=== PATIENT | male | born 1970 ===

== ENCOUNTER 2025-02-16 09:35 | Emergency (ER) | payer BC ==
[~2025-02-16] VITALS: Ht 182.9 cm; Wt 117.9 kg
[~2025-02-16 09:35] MED LIST: IBUHYD PO; INSUASPI; INSULANI
[2025-02-16] MEDS ORDERED: Cephalexin Monohydrate 500 MG Cap PO ONE (10:05)
[2025-02-16] MEDS ORDERED: CEPH500 PO (10:06)
[2025-02-16 10:27] VITALS: BP 170/81
== END 2025-02-16 10:27 | disposition home or self-care (01) ==
LOC: ER 09:35
DX: L03.115 Cellulitis of right lower limb (principal); E10.9 Type 1 diabetes mellitus without complications; Z79.4 Long term (current) use of insulin
CPT/HCPCS: 99283; A9270

== ENCOUNTER 2025-02-18 18:06 | Inpatient (IN) | payer BC ==
[~2025-02-18] VITALS: Ht 182.9 cm; Wt 118.7 kg
[~2025-02-18 18:06] MED LIST changes: +CEPH500 PO
[2025-02-18 22:43] LABS: BASOPHILS ABSOLUTE AUTO 0.07 K/mm3 (0.00-0.23); BASOPHILS PERCENT AUTO 1 % (0-2); EOSINOPHILS ABSOLUTE AUTO 0.09 K/mm3 (0.00-0.68); EOSINOPHILS PERCENT AUTO 1 % (0-6); Hematocrit 50.3 % (37.0-53.0); Hemoglobin 16.3 g/dL (13.5-17.5); IMMATURE GRAN ABSOLUTE AUTO 0.17 K/mm3 (0.00-0.10); IMMATURE GRAN PERCENT AUTO 1 % (0-1); LYMPHOCYTES ABSOLUTE AUTO 1.51 K/mm3 (0.84-5.20); LYMPHOCYTES PERCENT AUTO 11 % (21-46); MONOCYTES ABSOLUTE AUTO 1.23 K/mm3 (0.16-1.47); MONOCYTES PERCENT AUTO 9 % (4-13); Mean Corpuscular HGB 27.7 pg (26.0-34.0); Mean Corpuscular HGB Conc 32.4 g/dL (31.5-36.5); Mean Corpuscular Volume 86 fL (80-100); NEUTROPHILS ABSOLUTE AUTO 10.74 K/mm3 (1.96-9.15); NEUTROPHILS PERCENT AUTO 78 % (41-73); Platelet Count 282 K/mm3 (150-400); RDW Standard Deviation 47.6 fL (35.1-46.3); Red Blood Cell Count 5.88 M/mm3 (4.30-5.90); White Blood Cell Count 13.81 K/mm3 (4.00-11.30)
[2025-02-18] MEDS ORDERED: Cefepime HCl 2,000 MG in NS 100 ML IV ONE (23:10)
[2025-02-18 23:11] LABS: Albumin, Blood 2.8 g/dL (3.4-5.0); Albumin/Globulin Ratio 0.5 (0.8-1.8); Bilirubin, Total 0.5 mg/dL (0.1-1.0); Bun/Creatinine Ratio 25.8 (12.0-20.0); Creatinine, Blood 0.78 mg/dL (0.60-1.20); Globulin, Blood 5.4 g/dL (2.2-4.0); Potassium, Blood 3.6 mmol/L (3.5-5.5); Total Protein, Blood 8.2 g/dL (6.4-8.2)
[2025-02-19] MEDS ORDERED: Acetaminophen 325 MG TABLET PO PRN (02:45)
[2025-02-19] MEDS ORDERED: HydrALAZINE HCl 20 MG / ML 1ML Vial IV PRN (02:50)
[2025-02-19] MEDS ORDERED: INSULIN GL100 UNIT/2 SC (03:15)
[2025-02-19 04:45] VITALS: BP 210/89
[2025-02-19] MEDS ORDERED: Vancomycin HCL 2,500 MG in NS 500 ML IV ONE (05:05)
--- NOTE | 2025-02-19 06:10 | NUR ---
PT ADMITTED FROM ED WITH RLE CELLULITIS, ON IVABX, CAN USE CALL SYSTEM, IS TYPE 1 DM, AND HAS CMG WITH CONTINUOUS CBG MONITOR, USES INSULIN AT HOME. PT INDEPENDENT.
[2025-02-19 07:16] LABS: BASOPHILS ABSOLUTE AUTO 0.08 K/mm3 (0.00-0.23); BASOPHILS PERCENT AUTO 1 % (0-2); EOSINOPHILS ABSOLUTE AUTO 0.11 K/mm3 (0.00-0.68); EOSINOPHILS PERCENT AUTO 1 % (0-6); Hematocrit 46.2 % (37.0-53.0); Hemoglobin 15.3 g/dL (13.5-17.5); IMMATURE GRAN ABSOLUTE AUTO 0.14 K/mm3 (0.00-0.10); IMMATURE GRAN PERCENT AUTO 1 % (0-1); LYMPHOCYTES ABSOLUTE AUTO 1.48 K/mm3 (0.84-5.20); LYMPHOCYTES PERCENT AUTO 13 % (21-46); MONOCYTES ABSOLUTE AUTO 1.29 K/mm3 (0.16-1.47); MONOCYTES PERCENT AUTO 11 % (4-13); Mean Corpuscular HGB 28.6 pg (26.0-34.0); Mean Corpuscular HGB Conc 33.1 g/dL (31.5-36.5); Mean Corpuscular Volume 86 fL (80-100); Mean Platelet Volume 11.8 fL (9.1-12.4); NEUTROPHILS ABSOLUTE AUTO 8.46 K/mm3 (1.96-9.15); NEUTROPHILS PERCENT AUTO 73 % (41-73); Platelet Count 245 K/mm3 (150-400); RDW Standard Deviation 47.9 fL (35.1-46.3); Red Blood Cell Count 5.35 M/mm3 (4.30-5.90); White Blood Cell Count 11.56 K/mm3 (4.00-11.30)
[2025-02-19] MEDS ORDERED: Insulin Human Lispro 100 Units/ML 3ML Syringe SC SCH (07:30)
[2025-02-19 07:33] VITALS: BP 184/83
[2025-02-19 07:57] LABS: Albumin, Blood 2.3 g/dL (3.4-5.0); Albumin/Globulin Ratio 0.5 (0.8-1.8); Bilirubin, Total 0.6 mg/dL (0.1-1.0); Bun/Creatinine Ratio 20.3 (12.0-20.0); Calcium, Blood 8.4 mg/dL (8.5-10.1); Creatinine, Blood 0.69 mg/dL (0.60-1.20); Globulin, Blood 4.4 g/dL (2.2-4.0); Potassium, Blood 3.6 mmol/L (3.5-5.5); Total Protein, Blood 6.7 g/dL (6.4-8.2)
[2025-02-19] MEDS ORDERED: Enoxaparin 40 MG/0.4 ML SYR SC SCH (09:00)
--- NOTE | 2025-02-19 13:13 | NUR ---
PT REQUESTING TO MONITOR/MANAGE HIS OWN CBG USING HIS DEXCOM AND ADMINISTER HIS INSULIN INDEPENDENTLY. PT DISCUSSED WITH PROVIDER WHO AGREES PT IS CAPABLE AND CONSISTENT IN MANAGING HIS DM1. PT SIGNED PAPER AGREEING TO NOTIFY RN ON DUTY OF CBG AC/HS AND VERIFY ANY INSULIN PRIOT TO BEING ADMINISTERED FOR PROPER DOCUMENTATION. WHITE LEAD GRINDER NOTIFIED AND IN AGREEANCE.
[2025-02-19] MEDS ORDERED: Lisinopril 10 MG Tab PO SCH (15:00)
[2025-02-19 15:12] VITALS: BP 187/81
[2025-02-19] MEDS ORDERED: Vancomycin HCL 1,500 MG in NS 250 ML IV SCH ×2 (17:00→18:00)
--- NOTE | 2025-02-19 17:27 | NUR ---
SHIFT SUMMARY NO ACUTE CHANGES, A/Ox4, ABLE TO MAKE NEEDS KNOWN AND USE CALL LIGHT APPROPRIATELY. PT DENIES PAIN BESIDES WHEN INITIALLY STANDING TO AMBULATE, DENIES NEED FOR PAIN MANAGEMENT. PER PROIVDER ORDER PT ABLE TO MANAGE DM1 WITH INSULIN INDEPENDENTLY AND USING DEXCOM - PT AGREES TO NOTIFY RN ON DUTY WHEN HE ADMINISTERS INSULIN FOR DOCUMENTATION PURPOSES. MRSA NOSE SWAB COMPLETED, UNABLE TO COLLECT SKIN SWAB DUE TO NO WHEEPING. RLE REMAINS RED AND SWOLLEN, REDNESS WITHIN MARKINGS. CONTINUES ON VANCO ABX. PT CURRENTLY RESTING IN HOSPITAL BED WITH BED IN LOWEST POSITION, CALL LIGHT WITHIN REACH. FAMILY AT BEDSIDE.
[2025-02-19 19:22] VITALS: BP 169/78
[2025-02-19] MEDS ORDERED: Insulin Glargine-Yfgn 100 Unit/mL 3 ML SYR SC SCH (21:00)
[2025-02-19] MEDS ORDERED: Misc. Injectable SC SCH (21:00)
--- NOTE | 2025-02-20 03:13 | NUR ---
SHIFT SUMMARY NO ACUTE EVENTS DURING THIS SHIFT. PT MANAGES DM TYPE I WITH DEXACOM GLUCOMONITOR AND ADMINISTERS INSULIN INDEPENDENTLY. PT REPORTS TAKES 40 UNITS OF GLARGINE @0700 AND @1900 AND NOVOLOG PER SLIDING SCALE. AFTER DINNER BG 156 PER PT REPORT. RLE MARKED, RED AND SWOLLEN, NO WHEEPING NOTED. ELEVATED WITH A PILLOW. PRN TYLENOL ADMINISTERED @HS FOR C/O 7/10 RLE PAIN. PT IS INDEPENDENT WITHIN THE HOSPITAL ROOM. BED AT THE LOWEST POSITION, CALL LIGHT W/I REACH. PT IS A/O X4, ABLE TO MAKE HIS NEEDS KNOWN AND COOPERATIVE WITH CARE.
[2025-02-20 03:48] VITALS: BP 160/82
[2025-02-20] MEDS ORDERED: NS 250 ML IV PRN (04:00)
[2025-02-20 06:15] LABS: BASOPHILS ABSOLUTE AUTO 0.13 K/mm3 (0.00-0.23); BASOPHILS PERCENT AUTO 1 % (0-2); EOSINOPHILS ABSOLUTE AUTO 0.16 K/mm3 (0.00-0.68); EOSINOPHILS PERCENT AUTO 1 % (0-6); Hematocrit 45.2 % (37.0-53.0); Hemoglobin 14.6 g/dL (13.5-17.5); IMMATURE GRAN ABSOLUTE AUTO 0.53 K/mm3 (0.00-0.10); IMMATURE GRAN PERCENT AUTO 5 % (0-1); LYMPHOCYTES ABSOLUTE AUTO 2.11 K/mm3 (0.84-5.20); LYMPHOCYTES PERCENT AUTO 19 % (21-46); MONOCYTES ABSOLUTE AUTO 1.34 K/mm3 (0.16-1.47); MONOCYTES PERCENT AUTO 12 % (4-13); Mean Corpuscular HGB 27.5 pg (26.0-34.0); Mean Corpuscular HGB Conc 32.3 g/dL (31.5-36.5); Mean Corpuscular Volume 85 fL (80-100); Mean Platelet Volume 11.7 fL (9.1-12.4); NEUTROPHILS ABSOLUTE AUTO 6.79 K/mm3 (1.96-9.15); NEUTROPHILS PERCENT AUTO 61 % (41-73); Platelet Count 300 K/mm3 (150-400); RDW Coefficient Variation 14.7 % (11.7-14.2); RDW Standard Deviation 46.2 fL (35.1-46.3); Red Blood Cell Count 5.31 M/mm3 (4.30-5.90); White Blood Cell Count 11.06 K/mm3 (4.00-11.30)
[2025-02-20 06:52] LABS: Bun/Creatinine Ratio 17.8 (12.0-20.0); Calcium, Blood 8.7 mg/dL (8.5-10.1); Creatinine, Blood 0.68 mg/dL (0.60-1.20); Potassium, Blood 3.6 mmol/L (3.5-5.5)
[2025-02-20 08:01] VITALS: BP 162/79
[2025-02-20 15:23] VITALS: BP 156/71
[2025-02-20 16:25] LABS: Vancomycin, Trough 12.4 ug/mL (5.0-10.0)
--- NOTE | 2025-02-20 16:58 | NUR ---
SHIFT SUMMARY NO ACUTE CHANGES, A/Ox4, INDEPENDENT IN ROOM. USES CALL LIGHT APPROPRIATELY. TREATED FOR RLE PAIN PER EMAR. PT CONTINUES TO MANAGE OWN DM AND INSULIN ADMINISTRATION - CBG REMAINS WNL. BLOOD PRESSURE IMPROVING WITH LISINOPRIL. CONTINUES ON VANCO FOR CELLULITIS. PT CURRENTLY SITTING UP IN CHAIR IN ROOM, CALL LIGHT WITHIN REACH.
[2025-02-20] MEDS ORDERED: Vancomycin HCL 1,750 MG in NS 500 ML IV SCH (18:00)
[2025-02-20 21:07] VITALS: BP 141/54
--- NOTE | 2025-02-21 03:25 | NUR ---
SHIFT SUMMARY NO ACUTE EVENTS DURING THIS SHIFT. PT DENIES PAIN. RIGHT LE ELEVATED WITH PILLOWS. MARKED CELLULITIS ON RIGHT LE. NO WHEEPING NOTED, BLISTERS/LARGE NOTED IN THE MARKED AREA. PT CONTINUES TO ADMINISTER INSULIN INDEPENDENTLY. PER PT REPORT, AFTER DINNER BG 156. PER PT REPORT, ADMINISTERS 40U GLARGINE @1900 (AND 0700), AND HUMALOG PER SLIDING SCALE. PT HAS DEXCOM GLUCOMETER. BED AT THE LOWEST POSITION, CALL LIGHT W/I REACH. PT IS A/O X4, ABLE TO MAKE HIS NEEDS KNOWN AND COOPERATIVE WITH CARE.
[2025-02-21 04:59] VITALS: BP 170/80
[2025-02-21 05:28] LABS: Hematocrit 46.3 % (37.0-53.0); Hemoglobin 14.9 g/dL (13.5-17.5); Mean Corpuscular HGB 27.5 pg (26.0-34.0); Mean Corpuscular HGB Conc 32.2 g/dL (31.5-36.5); Mean Corpuscular Volume 86 fL (80-100); Mean Platelet Volume 11.4 fL (9.1-12.4); Platelet Count 334 K/mm3 (150-400); RDW Coefficient Variation 14.6 % (11.7-14.2); RDW Standard Deviation 46.2 fL (35.1-46.3); Red Blood Cell Count 5.41 M/mm3 (4.30-5.90); White Blood Cell Count 14.33 K/mm3 (4.00-11.30)
[2025-02-21 06:09] LABS: BAND PERCENT MAN 1 % (0-8); BASOPHILS PERCENT MAN 0 % (0-2); EOSINOPHILS ABSOLUTE MAN 0.14 K/mm3 (0.00-0.68); EOSINOPHILS PERCENT MAN 1 % (0-6); LYMPHOCYTES ABSOLUTE MAN 2.86 K/mm3 (0.84-5.20); LYMPHOCYTES PERCENT MAN 20 % (21-46); MONOCYTES ABSOLUTE MAN 1.43 K/mm3 (0.16-1.47); MONOCYTES PERCENT MAN 10 % (4-13); MYELOCYTE ABSOLUTE MAN 0.42 K/mm3 (0.00-0.00); MYELOCYTE PERCENT MAN 3 % (0-0); NEUTROPHILS ABSOLUTE MAN 9.45 K/mm3 (1.96-9.15); SEG NEUTROPHILS PERCENT MAN 65 % (41-73); TOTAL CELLS COUNTED 100
[2025-02-21 07:42] VITALS: BP 165/75
[2025-02-21 15:31] VITALS: BP 159/71
--- NOTE | 2025-02-21 18:20 | NUR ---
SHIFT SUMMARY NO ACUTE CHANGES. A/Ox4, INDEPENDENT IN ROOM, USES CALL LIGHT APPROPRIATELY. CONTINUES ON VANCO FOR RLE CELLUTLITIS. RLE LOOKS MUCH IMPROVED FROM PREVIOUS DAY SHIFT. PT CONTINUES TO ELEVATE RLE MAJORITY OF DAY. DENIES PAIN. APPETITE GOOD. MANAGING OWN CBG AND INSULIN ADMINISTRATION. PT CURRENTLY RESTING IN ROOM WITH FAMILY VISITING. CALL LIGHT IN REACH.
[2025-02-21 19:43] VITALS: BP 165/72
[2025-02-21] MEDS ORDERED: Lisinopril 20 MG Tab PO SCH (21:00)
--- NOTE | 2025-02-22 03:07 | NUR ---
SHIFT SUMMARY NO ACUTE EVENTS DURING THIS SHIFT. PT CONTINUES TO MANAGE BLOOD SUGAR CHECKS AND INSULIN ADMINISTRATION INDEPENDENTLY. HS BG 90 PER PT REPORT. RIGHT LE ELEVATED WITH PILLOWS, MARKED AREA APPEARS IMPROVING COMPARED TO PREVIOUS NOC SHIFT. TYLENOL PRN PO ADMINISTERED @HS FOR C/O 5/10 RIGHT LE PAIN. PT REPORTS EFFECTIVE. BED AT THE LOWEST POSITION, CALL LIGHT W/I REACH. PT IS A/O X4, COOPERATIVE WITH CARE, AND ABLE TO MAKE HIS NEEDS KNOWN.
[2025-02-22 05:32] VITALS: BP 152/65
[2025-02-22 05:43] LABS: Hematocrit 46.6 % (37.0-53.0); Hemoglobin 14.9 g/dL (13.5-17.5); Mean Corpuscular HGB 27.4 pg (26.0-34.0); Mean Corpuscular Volume 86 fL (80-100); Mean Platelet Volume 11.4 fL (9.1-12.4); Platelet Count 352 K/mm3 (150-400); RDW Coefficient Variation 14.6 % (11.7-14.2); Red Blood Cell Count 5.43 M/mm3 (4.30-5.90); White Blood Cell Count 13.02 K/mm3 (4.00-11.30)
[2025-02-22 05:59] LABS: Creatinine, Blood 0.78 mg/dL (0.60-1.20); Vancomycin, Trough 15.4 ug/mL (5.0-10.0)
[2025-02-22 06:17] LABS: BAND PERCENT MAN 6 % (0-8); BASOPHILS ABSOLUTE MAN 0.13 K/mm3 (0.00-0.23); BASOPHILS PERCENT MAN 1 % (0-2); EOSINOPHILS ABSOLUTE MAN 0.52 K/mm3 (0.00-0.68); EOSINOPHILS PERCENT MAN 4 % (0-6); LYMPHOCYTES ABSOLUTE MAN 1.95 K/mm3 (0.84-5.20); LYMPHOCYTES PERCENT MAN 15 % (21-46); METAMYELOCYTE ABSOLUTE MAN 0.13 K/mm3 (0.00-0.00); METAMYELOCYTE PERCENT MAN 1 % (0-0); MONOCYTES ABSOLUTE MAN 1.43 K/mm3 (0.16-1.47); MONOCYTES PERCENT MAN 11 % (4-13); MYELOCYTE ABSOLUTE MAN 0.13 K/mm3 (0.00-0.00); MYELOCYTE PERCENT MAN 1 % (0-0); NEUTROPHILS ABSOLUTE MAN 8.72 K/mm3 (1.96-9.15); SEG NEUTROPHILS PERCENT MAN 61 % (41-73); TOTAL CELLS COUNTED 100
[2025-02-22 07:19] VITALS: BP 155/76
[2025-02-22 15:49] VITALS: BP 173/77
--- NOTE | 2025-02-22 19:08 | NUR ---
PT A&OX4, NON TELE RA, IND IN ROOM. SELF MANAGES INSULIN, HAS DEXCOM. C/O PAIN X1 MANAGED WITH PRN TYLENOL. CELLULITIS IMPROVING PER PT AN MD. CALLS APPROPRIATELY COOPERATIVE WITH CARE.
[2025-02-22 19:16] VITALS: BP 155/79
[2025-02-23 05:12] VITALS: BP 166/74
--- NOTE | 2025-02-23 05:20 | NUR ---
SHIFT SUMMARY NOC PT A/O X 4. PLEASANT AND COOPERATIVE WITH CARE. VSS. PT SELF MANAGING AND ADMINISTERING SHORT AND LONG ACTING INSULIN USING DEXCOM PER MD. PT HS BLOOD GLUCOSE 149 PER DEXCOM AND PT ADMINISTED LONG ACTING ON OWN. RLE STILL RED AND WARM TO TOUCH, BUT BORDER IS RETREATING. PT RLE PAIN MANAGED PER EMAR. PT EXPECTED TO DISCHARGE HOME TODAY. PT CURRENTLY RESTING WITH BED IN LOWEST POSITION, AND CALL LIGHT WITHIN REACH.
[2025-02-23 05:49] LABS: BASOPHILS ABSOLUTE AUTO 0.12 K/mm3 (0.00-0.23); BASOPHILS PERCENT AUTO 1 % (0-2); EOSINOPHILS ABSOLUTE AUTO 0.25 K/mm3 (0.00-0.68); EOSINOPHILS PERCENT AUTO 2 % (0-6); Hematocrit 46.9 % (37.0-53.0); Hemoglobin 15.2 g/dL (13.5-17.5); IMMATURE GRAN ABSOLUTE AUTO 0.69 K/mm3 (0.00-0.10); IMMATURE GRAN PERCENT AUTO 5 % (0-1); LYMPHOCYTES ABSOLUTE AUTO 1.81 K/mm3 (0.84-5.20); LYMPHOCYTES PERCENT AUTO 13 % (21-46); MONOCYTES ABSOLUTE AUTO 1.22 K/mm3 (0.16-1.47); MONOCYTES PERCENT AUTO 9 % (4-13); Mean Corpuscular HGB 28.1 pg (26.0-34.0); Mean Corpuscular HGB Conc 32.4 g/dL (31.5-36.5); Mean Corpuscular Volume 87 fL (80-100); Mean Platelet Volume 11.3 fL (9.1-12.4); NEUTROPHILS ABSOLUTE AUTO 9.65 K/mm3 (1.96-9.15); NEUTROPHILS PERCENT AUTO 70 % (41-73); Platelet Count 374 K/mm3 (150-400); RDW Coefficient Variation 14.6 % (11.7-14.2); RDW Standard Deviation 46.5 fL (35.1-46.3); White Blood Cell Count 13.74 K/mm3 (4.00-11.30)
[2025-02-23 06:16] LABS: Calcium, Blood 8.8 mg/dL (8.5-10.1); Creatinine, Blood 0.78 mg/dL (0.60-1.20)
[2025-02-23 07:25] VITALS: BP 171/75
[2025-02-23] MEDS ORDERED: LISI20 PO (12:01)
[2025-02-23] MEDS ORDERED: Keflex500 MG PO (12:04)
--- NOTE | 2025-02-23 13:10 | NUR ---
PT DISCHARGED WITH DC INSTRUCTIONS- STAFF ESCORT OUTSIDE TO PRIVATE CAR FOR WILL DRIVE PT HOME. BELONGINGS SENT HOME WITH PT
== END 2025-02-23 12:30 | disposition home or self-care (01) | DRG 603 ==
LOC: ER 18:06 → MEDS 18:07
PROVIDERS: Internal Medicine; Student in an Organized Health Care Education/Training Program; ADMIT Student in an Organized Health Care Education/Training Program
DX: L03.115 Cellulitis of right lower limb (principal); B95.5 Unspecified streptococcus as the cause of diseases classified elsewhere; B95.8 Unspecified staphylococcus as the cause of diseases classified elsewhere; E10.9 Type 1 diabetes mellitus without complications; I10 Essential (primary) hypertension; Z79.4 Long term (current) use of insulin
CPT/HCPCS: 36415; 73701; 80048; 80053; 80202; 82565; 83605; 85025; 87040; 96365; 96372; 96375; 99283; 99285-25; A9270; G0378; J0692; J1650; J1815; J3370; J7040; J7050; Q9967